=== PATIENT | female | born 1980 ===

== ENCOUNTER 2016-09-18 08:13 | Emergency (ER) | payer SELFPAY ==
--- NOTE | 2016-09-18 14:12 | ED CLINICAL REPORT ---
Clinical Report - Physicians/Mid Levels [facility] [address] [place] [address] 09/18/2016 8:15 Patient: CONY AVILES Time Seen: 09:00. Arrived- By private vehicle. Historian- patient. HISTORY OF PRESENT ILLNESS Chief Complaint: ABDOMINAL PAIN and VOMITING headache. At its maximum, severity described as moderate. When seen in the E.D., severity described as moderate. Modifying factors. Not worsened by anything. Not relieved by anything. It is described as "pain" and it is described as located in the epigastric area. This started about 2 days ago and is still present. The patient has had nausea, loss of appetite and vomiting. No diarrhea. (PT has also had a L-sided headache that started today. No recent head trauma or alcohol ingestion.). Similar symptoms previously: None. Recent medical care: The patient was seen recently at another facility. ( Pt was started on amoxicillin and Vicodin for a dental infection 3 days ago.). REVIEW OF SYSTEMS No constipation, black stools, hematemesis, difficulty with urination or pain with urination. No urinary frequency, bloody stools, fever, sore throat or blurred vision. No chest pain, difficulty breathing, cough, joint pain or skin rash. No chills or back pain. Denies current . The patient has had a headache. All systems otherwise negative, except as recorded above. PAST HISTORY Problems: no known problems. Additional Surgeries: . Medications: Hydrocodone-Acetaminophen Oral. Amoxicillin Oral. Allergies: No Known Drug Allergy. SOCIAL HISTORY Smoker- current status unknown. Occasional alcohol use. No drug use. ADDITIONAL NOTES The nursing notes have been reviewed. PHYSICAL EXAM Vital Signs: 09/18/2016 08:46 BP: 104/48. HR: 74. RR: 16. O2 saturation: 100%. Temp: 98.4 F. Have been reviewed. Appearance: Alert. No acute distress. (PT appears moderately uncomfortable.). Eyes: Pupils equal, round and reactive to light. Eyes normal inspection. ENT: Nose normal. Neck: Normal inspection. Neck supple. CVS: Normal heart rate and rhythm. Heart sounds normal. Pulses normal. Respiratory: No respiratory distress. Breath sounds normal. Abdomen: Soft. Moderate tenderness in the epigastric area. No guarding or rebound tenderness. Back: Normal inspection. No CVA tenderness. Skin: Skin warm and dry. Normal skin color. No rash. Normal skin turgor. Extremities: Extremities exhibit normal ROM. No lower extremity edema. Neuro: No motor deficit. No sensory deficit. (Pt answers questions briskly. She is primarily [place]se-speaking, and her interprets.). LABS, X-RAYS, AND EKG CT Head: No bony abnormalities, no midline shift, no hydrocephalus and no atrophy. (Pt has a 13-mm mass vs hemorrhage in her L frontal lobe.). Head CT performed without contrast. The study was independently viewed by me, interpreted by the radiologist and contemporaneously by me and discussed with the radiologist. Prior studies were not available for comparison. Abdominal Sonogram: The gallbladder is normal. Common duct is normal. Normal liver. No free fluid. (Pancreas shows signs of inflammation.). Study included the gallbladder and upper abdomen. Prior studies were not available for comparison. The study was interpreted by the radiologist and discussed with the radiologist. Laboratory Tests: UA-Culture if indicated: (YASMIN: 09/18/2016 08:55) ( MsgRcvd 09/18/2016 10:51) Final results Test Result Flag Units (Reference) URINE COLOR YELLOW URINE APPEARANCE CLEAR URINE GLUCOSE NEGATIVE (NEGATIVE) URINE BILIRUBIN NEGATIVE (NEGATIVE) URINE KETONE NEGATIVE (NEGATIVE) URINE SPECIFIC GRAVITY 1.025 (1.010-1.030) URINE PH 6.5 (5.0-8.0) URINE PROTEIN 1+ (NEGATIVE) URINE UROBILINOGEN 0.2 EU/dL (0.2-1.0) URINE NITRITE NEGATIVE (NEGATIVE) URINE BLOOD 3+ (NEGATIVE) URINE LEUK ESTERASE NEGATIVE (NEGATIVE) URINE RBC 50-75 rbc/hpf (0-1) URINE WBC 0-1 wbc/hpf (0-1) URINE EPITHELIAL CELLS 1-3 EPI/hpf (0-5) URINE BACTERIA NONE SEEN (NONE SEEN) URINE COMMENT CULT NOT INDICATED URINE CULTURES ARE SET-UP BASED ON THE FOLLOWING CRITERIA:POSITIVE NITRITEPOSITIVE LEUKOCYTE ESTERASEGREATER THAN 10 WHITE BLOOD CELLSMODERATE (2+) OR GREATER BACTERIA Urine: (YASMIN: 09/18/2016 08:55) ( [facility] Final results Test Result Flag Units (Reference) URINE NEGATIVE CBC w Diff: (YASMIN: 09/18/2016 09:00) ( [facility] 09/18/2016 10:16) Final results Test Result Flag Units (Reference) WHITE BLOOD COUNT 10.3 K/uL (4.5-11.5) RED BLOOD COUNT 3.75 L M/uL (4.00-5.20) HEMOGLOBIN 12.1 gm/dL (12.0-16.0) HEMATOCRIT 36.0 % (36.0-46.0) MEAN CELL VOLUME 96 fL (80-100) MEAN CORPUSCULAR HGB 32 pg (26-34) MEAN CORPUSCULAR HGB CONC 34 g/dL (31-37) RED CELL DISTRIBUTION WIDTH 13.0 % (11.6-14.8) PLATELET COUNT 222 K/uL (150-400) NEUTROPHIL % 87.1 H % (50-75) LYMPH % 8.9 L % (25-40) MONO % 3.7 % (3-14) EOSINOPHIL % 0.2 % (0-4) BASOPHIL % 0.1 % (0-2) CMP: (YASMIN: 09/18/2016 09:00) ( [facility] 09/18/2016 10:22) Final results Test Result Flag Units (Reference) GLUCOSE 105 mg/dL (70-110) BUN 12 mg/dL (7-18) CREATININE 0.5 L mg/dL (0.6-1.3) Estimated GFR >60 mL/min Estimated GFR- >60 mL/min Note: Persistent reduction over 3 months in eGFR<60 mL/min/1.73 m2 defines CKD. Patients with eGFR values>=60 mL/min/1.73 m2 may also have CKD if evidence ofpersistent proteinuria. Additional information may be foundat www.kidney.org. SODIUM 143 mmol/L (136-145) POTASSIUM 3.7 mmol/L (3.5-5.1) CHLORIDE 107 mmol/L (98-107) CARBON DIOXIDE 25 mmol/L (21-32) CALCIUM 8.1 L mg/dL (8.5-10.1) TOTAL PROTEIN 7.1 g/dL (6.4-8.2) ALBUMIN 3.6 g/dL (3.3-5.0) BILIRUBIN, TOTAL 0.2 mg/dL (0.0-1.0) ALKALINE PHOSPHATASE 37 L U/L (46-116) AST (SGOT) 110 H U/L (15-37) ALT (SGPT) 104 H U/L (12-78) LIPASE 878 H U/L (73-393) . Pulse Oximetry: 09/18/2016 08:46 O2 saturation: 100%. (FIO2 - room air). Interpretation: normal. PROGRESS AND PROCEDURES Course of Care: Pt was given IV fluids, Zofran and Dilaudid for her pain. Hospitalist was contacted to admit the pt for pancreatitis, but at the time of her evaluation, pt was noted to have staring episodes lasting 20-30 seconds, associated with clenching of her jaw. Episodes were noted to occur spontaneously in the middle of conversation, with no post-ictal sx afterward, and no tonic-clonic activity. I did observe an episode myself, and upon questioning the , he stated that pt had been experiencing this all day, though not on preceding days. Head CT was ordered, and demonstrated a L frontal lobe lesion which could represent a mass or bleed per radiologist. At this point, I felt pt should be transferred to a higher level of care for further work-up and intervention. Discussed case with on-call health care provider, (Kamron Sher/stroke fellow/[facility]: accepts pt in transfer to [facility]. Recommends oral loading with Dilantin.). Reviewed test results and need for additional work-up. Agreed upon treatment plan. Health care provider will see patient in ED. Patient and family counseled several times regarding the patient's serious condition, test results, diagnosis and need for additional testing and transfer. Concerns were addressed. Old medical records reviewed. Disposition: Transferred to [facility]. Condition: stable and serious. CLINICAL IMPRESSION New onset complex partial seizure (associated with brain lesion). Acute idiopathic pancreatitis. (Brain lesion: mass vs hemorrhage). (Electronically signed by Maria De Jesus Gonzalez MD 09/19/2016 14:06)
--- NOTE | 2016-09-18 14:12 | ED ORDER SUMMARY ---
..... Patient: CONY AVILES OrderSheet [facility] VisitID: [id number] [address] [place] [address] 36y, F Registration Date/Time: 09/18/2016 ORDER SHEET Weight: 55 kg (stated) Allergies: No Known Drug Allergy GENERAL ORDERS: UA-Culture if indicated Urgent (08:57 09/18/2016 MWinterer R.N. per protocol) (Ack 9:00 RKaruga) (9:10 MWinterer R.N.) Urine Urgent (08:57 09/18/2016 MWinterer R.N. per protocol) (Ack 9:00 RKaruga) (9:10 MWinterer R.N.) CBC w Diff Urgent (10:05 09/18/2016 Jie ALVARADO) (Ack 10:12 RKjatinuga) (10:17 MWinterer R.N.) CMP Urgent (10:05 09/18/2016 Jie ALVARADO) (Ack 10:12 RKjatinuga) (10:17 MWinterer R.N.) Lipase Urgent (10:05 09/18/2016 Jie ALVARADO) (Ack 10:12 RKjatinuga) (10:17 MWinterer R.N.) US Abdomen Limited (Yes) Urgent (11:58 09/18/2016 Jie ALVARADO) (Ack 12:23 MWinterer R.N.) (14:12 MWinterer R.N.) - (Please recheck temperature.) (13:31 09/18/2016 Jie ALVARADO) (13:35 MWinterer R.N.) - (triglyceride level) (14:19 09/18/2016 Jie ALVARADO) (Ack 14:23 Antwanuga) (15:30 MWinterer R.N.) CT Head wo Cont Urgent (14:40 09/18/2016 Jie ALVARADO) (Ack 14:44 RKleo) (15:30 MWinterer R.N.) MEDICATION ORDERS: Dilantin PO 500 mg (HIGH ALERT MEDICATION, NOW) (16:24 09/18/2016 Jie ALVARADO) (Ack 16:31 MWinterer R.N.) (16:47 MWinterer R.N.) IV FLUIDS: IV NS : initial bolus none -, then 1000 mL/hr (NOW) (09:27 09/18/2016 MWinterer R.N. per protocol) (9:27 MWinterer R.N.) Toradol IV 30 mg (NOW) (10:04 09/18/2016 Jie ALVARADO) (Ack 10:10 MWinterer R.N.) (10:19 MWinterer R.N.) Dilaudid IV 0.5 mg (HIGH ALERT MEDICATION, NOW) (10:04 09/18/2016 Jie ALVARADO) (Ack 10:10 MWinterer R.N.) (10:23 MWinterer R.N.) Zofran IV 8 mg (NOW) (10:04 09/18/2016 Jie ALVARADO) (Ack 10:10 MWinterer R.N.) (10:18 MWinterer R.N.) IV NS : initial bolus 1000 mL (1000 mL/hr), then none - (NOW) (16:24 09/18/2016 Jie ALVARADO) (Ack 16:32 MWinterer R.N.) (16:40 MWinterer R.N.) Dilaudid IV 1 mg (HIGH ALERT MEDICATION, NOW) (16:43 09/18/2016 Jie ALVARADO) (16:48 MWinterer R.N.) Zofran IV 4 mg (NOW) (17:51 09/18/2016 MWinterer R.N. verbal order read back to Jie ALVARADO) (17:52 MWinterer R.N.) ORDER SHEET NOTES: [Electronically signed by Justina Jacome R.N. (17:55 09/18/2016)] [Electronically signed by Maria De Jesus Gonzalez MD (14:06 09/19/2016)] [Electronically locked/signed by Justina Jacome R.N. (17:55 09/18/2016)]
--- NOTE | 2016-09-18 14:12 | ED ORDER SUMMARY ---
..... Patient: CONY AVILES OrderSheet [facility] VisitID: [id number] [address] [place] [address] 36y, F Registration Date/Time: 09/18/2016 ORDER SHEET Weight: 55 kg (stated) Allergies: No Known Drug Allergy GENERAL ORDERS: UA-Culture if indicated Urgent (08:57 09/18/2016 MWinterer R.N. per protocol) (Ack 9:00 RKaruga) (9:10 MWinterer R.N.) Urine Urgent (08:57 09/18/2016 MWinterer R.N. per protocol) (Ack 9:00 RKaruga) (9:10 MWinterer R.N.) CBC w Diff Urgent (10:05 09/18/2016 Jie ALVARADO) (Ack 10:12 RKjatinuga) (10:17 MWinterer R.N.) CMP Urgent (10:05 09/18/2016 Jie ALVARADO) (Ack 10:12 RKjatinuga) (10:17 MWinterer R.N.) Lipase Urgent (10:05 09/18/2016 Jie ALVARADO) (Ack 10:12 RKjatinuga) (10:17 MWinterer R.N.) US Abdomen Limited (Yes) Urgent (11:58 09/18/2016 Jie ALVARADO) (Ack 12:23 MWinterer R.N.) (14:12 MWinterer R.N.) - (Please recheck temperature.) (13:31 09/18/2016 Jie ALVARADO) (13:35 MWinterer R.N.) - (triglyceride level) (14:19 09/18/2016 Jie ALVARADO) (Ack 14:23 Antwanuga) (15:30 MWinterer R.N.) CT Head wo Cont Urgent (14:40 09/18/2016 Jie ALVARADO) (Ack 14:44 RKleo) (15:30 MWinterer R.N.) MEDICATION ORDERS: Dilantin PO 500 mg (HIGH ALERT MEDICATION, NOW) (16:24 09/18/2016 Jie ALVARADO) (Ack 16:31 MWinterer R.N.) (16:47 MWinterer R.N.) IV FLUIDS: IV NS : initial bolus none -, then 1000 mL/hr (NOW) (09:27 09/18/2016 MWinterer R.N. per protocol) (9:27 MWinterer R.N.) Toradol IV 30 mg (NOW) (10:04 09/18/2016 Jie ALVARADO) (Ack 10:10 MWinterer R.N.) (10:19 MWinterer R.N.) Dilaudid IV 0.5 mg (HIGH ALERT MEDICATION, NOW) (10:04 09/18/2016 Jie ALVARADO) (Ack 10:10 MWinterer R.N.) (10:23 MWinterer R.N.) Zofran IV 8 mg (NOW) (10:04 09/18/2016 Jie ALVARADO) (Ack 10:10 MWinterer R.N.) (10:18 MWinterer R.N.) IV NS : initial bolus 1000 mL (1000 mL/hr), then none - (NOW) (16:24 09/18/2016 Jie ALVARADO) (Ack 16:32 MWinterer R.N.) (16:40 MWinterer R.N.) Dilaudid IV 1 mg (HIGH ALERT MEDICATION, NOW) (16:43 09/18/2016 Jie ALVARADO) (16:48 MWinterer R.N.) Zofran IV 4 mg (NOW) (17:51 09/18/2016 MWinterer R.N. verbal order read back to Jie ALVARADO) (17:52 MWinterer R.N.) ORDER SHEET NOTES: [Electronically signed by Justina Jacome R.N. (17:55 09/18/2016)] [Electronically signed by Maria De Jesus Gonzalez MD (14:06 09/19/2016)] [Electronically locked/signed by Justina Jacome R.N. (17:55 09/18/2016)]
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
--- NOTE | 2016-09-18 14:12 | ED CLINICAL REPORT ---
Clinical Report - Physicians/Mid Levels [facility] [address] [place] [address] 09/18/2016 8:15 Patient: CONY AVILES Time Seen: 09:00. Arrived- By private vehicle. Historian- patient. HISTORY OF PRESENT ILLNESS Chief Complaint: ABDOMINAL PAIN and VOMITING headache. At its maximum, severity described as moderate. When seen in the E.D., severity described as moderate. Modifying factors. Not worsened by anything. Not relieved by anything. It is described as "pain" and it is described as located in the epigastric area. This started about 2 days ago and is still present. The patient has had nausea, loss of appetite and vomiting. No diarrhea. (PT has also had a L-sided headache that started today. No recent head trauma or alcohol ingestion.). Similar symptoms previously: None. Recent medical care: The patient was seen recently at another facility. ( Pt was started on amoxicillin and Vicodin for a dental infection 3 days ago.). REVIEW OF SYSTEMS No constipation, black stools, hematemesis, difficulty with urination or pain with urination. No urinary frequency, bloody stools, fever, sore throat or blurred vision. No chest pain, difficulty breathing, cough, joint pain or skin rash. No chills or back pain. Denies current . The patient has had a headache. All systems otherwise negative, except as recorded above. PAST HISTORY Problems: no known problems. Additional Surgeries: . Medications: Hydrocodone-Acetaminophen Oral. Amoxicillin Oral. Allergies: No Known Drug Allergy. SOCIAL HISTORY Smoker- current status unknown. Occasional alcohol use. No drug use. ADDITIONAL NOTES The nursing notes have been reviewed. PHYSICAL EXAM Vital Signs: 09/18/2016 08:46 BP: 104/48. HR: 74. RR: 16. O2 saturation: 100%. Temp: 98.4 F. Have been reviewed. Appearance: Alert. No acute distress. (PT appears moderately uncomfortable.). Eyes: Pupils equal, round and reactive to light. Eyes normal inspection. ENT: Nose normal. Neck: Normal inspection. Neck supple. CVS: Normal heart rate and rhythm. Heart sounds normal. Pulses normal. Respiratory: No respiratory distress. Breath sounds normal. Abdomen: Soft. Moderate tenderness in the epigastric area. No guarding or rebound tenderness. Back: Normal inspection. No CVA tenderness. Skin: Skin warm and dry. Normal skin color. No rash. Normal skin turgor. Extremities: Extremities exhibit normal ROM. No lower extremity edema. Neuro: No motor deficit. No sensory deficit. (Pt answers questions briskly. She is primarily Austrian-speaking, and her interprets.). LABS, X-RAYS, AND EKG CT Head: No bony abnormalities, no midline shift, no hydrocephalus and no atrophy. (Pt has a 13-mm mass vs hemorrhage in her L frontal lobe.). Head CT performed without contrast. The study was independently viewed by me, interpreted by the radiologist and contemporaneously by me and discussed with the radiologist. Prior studies were not available for comparison. Abdominal Sonogram: The gallbladder is normal. Common duct is normal. Normal liver. No free fluid. (Pancreas shows signs of inflammation.). Study included the gallbladder and upper abdomen. Prior studies were not available for comparison. The study was interpreted by the radiologist and discussed with the radiologist. Laboratory Tests: UA-Culture if indicated: (YASMIN: 09/18/2016 08:55) ( MsgRcvd 09/18/2016 10:51) Final results Test Result Flag Units (Reference) URINE COLOR YELLOW URINE APPEARANCE CLEAR URINE GLUCOSE NEGATIVE (NEGATIVE) URINE BILIRUBIN NEGATIVE (NEGATIVE) URINE KETONE NEGATIVE (NEGATIVE) URINE SPECIFIC GRAVITY 1.025 (1.010-1.030) URINE PH 6.5 (5.0-8.0) URINE PROTEIN 1+ (NEGATIVE) URINE UROBILINOGEN 0.2 EU/dL (0.2-1.0) URINE NITRITE NEGATIVE (NEGATIVE) URINE BLOOD 3+ (NEGATIVE) URINE LEUK ESTERASE NEGATIVE (NEGATIVE) URINE RBC 50-75 rbc/hpf (0-1) URINE WBC 0-1 wbc/hpf (0-1) URINE EPITHELIAL CELLS 1-3 EPI/hpf (0-5) URINE BACTERIA NONE SEEN (NONE SEEN) URINE COMMENT CULT NOT INDICATED URINE CULTURES ARE SET-UP BASED ON THE FOLLOWING CRITERIA:POSITIVE NITRITEPOSITIVE LEUKOCYTE ESTERASEGREATER THAN 10 WHITE BLOOD CELLSMODERATE (2+) OR GREATER BACTERIA Urine: (YASMIN: 09/18/2016 08:55) ( [facility] Final results Test Result Flag Units (Reference) URINE NEGATIVE CBC w Diff: (YASMIN: 09/18/2016 09:00) ( [facility]/18[facility]2016 10:16) Final results Test Result Flag Units (Reference) WHITE BLOOD COUNT 10.3 K/uL (4.5-11.5) RED BLOOD COUNT 3.75 L M/uL (4.00-5.20) HEMOGLOBIN 12.1 gm/dL (12.0-16.0) HEMATOCRIT 36.0 % (36.0-46.0) MEAN CELL VOLUME 96 fL (80-100) MEAN CORPUSCULAR HGB 32 pg (26-34) MEAN CORPUSCULAR HGB CONC 34 g/dL (31-37) RED CELL DISTRIBUTION WIDTH 13.0 % (11.6-14.8) PLATELET COUNT 222 K/uL (150-400) NEUTROPHIL % 87.1 H % (50-75) LYMPH % 8.9 L % (25-40) MONO % 3.7 % (3-14) EOSINOPHIL % 0.2 % (0-4) BASOPHIL % 0.1 % (0-2) CMP: (YASMIN: 09/18/2016 09:00) ( [facility]/18/2016 10:22) Final results Test Result Flag Units (Reference) GLUCOSE 105 mg/dL (70-110) BUN 12 mg/dL (7-18) CREATININE 0.5 L mg/dL (0.6-1.3) Estimated GFR >60 mL/min Estimated GFR- >60 mL/min Note: Persistent reduction over 3 months in eGFR<60 mL/min/1.73 m2 defines CKD. Patients with eGFR values>=60 mL/min/1.73 m2 may also have CKD if evidence ofpersistent proteinuria. Additional information may be foundat www.kidney.org. SODIUM 143 mmol/L (136-145) POTASSIUM 3.7 mmol/L (3.5-5.1) CHLORIDE 107 mmol/L (98-107) CARBON DIOXIDE 25 mmol/L (21-32) CALCIUM 8.1 L mg/dL (8.5-10.1) TOTAL PROTEIN 7.1 g/dL (6.4-8.2) ALBUMIN 3.6 g/dL (3.3-5.0) BILIRUBIN, TOTAL 0.2 mg/dL (0.0-1.0) ALKALINE PHOSPHATASE 37 L U/L (46-116) AST (SGOT) 110 H U/L (15-37) ALT (SGPT) 104 H U/L (12-78) LIPASE 878 H U/L (73-393) . Pulse Oximetry: 09/18/2016 08:46 O2 saturation: 100%. (FIO2 - room air). Interpretation: normal. PROGRESS AND PROCEDURES Course of Care: Pt was given IV fluids, Zofran and Dilaudid for her pain. Hospitalist was contacted to admit the pt for pancreatitis, but at the time of her evaluation, pt was noted to have staring episodes lasting 20-30 seconds, associated with clenching of her jaw. Episodes were noted to occur spontaneously in the middle of conversation, with no post-ictal sx afterward, and no tonic-clonic activity. I did observe an episode myself, and upon questioning the , he stated that pt had been experiencing this all day, though not on preceding days. Head CT was ordered, and demonstrated a L frontal lobe lesion which could represent a mass or bleed per radiologist. At this point, I felt pt should be transferred to a higher level of care for further work-up and intervention. Discussed case with on-call health care provider, (Kamron Sher/stroke fellow/[facility]: accepts pt in transfer to [facility]. Recommends oral loading with Dilantin.). Reviewed test results and need for additional work-up. Agreed upon treatment plan. Health care provider will see patient in ED. Patient and family counseled several times regarding the patient's serious condition, test results, diagnosis and need for additional testing and transfer. Concerns were addressed. Old medical records reviewed. Disposition: Transferred to [facility]. Condition: stable and serious. CLINICAL IMPRESSION New onset complex partial seizure (associated with brain lesion). Acute idiopathic pancreatitis. (Brain lesion: mass vs hemorrhage). (Electronically signed by Maria De Jesus Gonzalez MD 09/19/2016 14:06)
--- NOTE | 2016-09-18 15:44 | DIAGNOSTIC IMAGING REPORT ---
PROCEDURE: US ABDOMEN ULTRASOUND-LIMITED INDICATION: RUQ PAIN TECHNIQUE: Antonio scale and color Doppler sonographic images were obtained of the right upper quadrant. COMPARISON: None. FINDINGS: The liver is normal in size, contour, and echotexture. No mass or biliary dilatation. The gallbladder is normal without stones or sludge. Normal wall thickness at 1.8 mm. No pericholecystic fluid or Wolf's sign. The visible portion of the inferior vena cava, abdominal aorta, and portal vein appear normal with appropriate direction of flow in the portal vein. The right kidney is normal measuring 10.5 cm. No free fluid in the right upper quadrant. Sonographic appearance the pancreas is grossly normal. No significant peripancreatic fluid. IMPRESSION: 1. Normal right upper quadrant ultrasound.
--- NOTE | 2016-09-18 16:08 | DIAGNOSTIC IMAGING REPORT ---
PROCEDURE: CT HEAD WITHOUT CONTRAST INDICATION: MENTAL STATUS CHANGE TECHNIQUE: Axial CT images were acquired through the head. Coronal and sagittal reformations were created. COMPARISON: None. FINDINGS: There is an ovoid, wispy, slightly heterogeneous hyperdensity in the left frontal subcortical white matter, just cranial, adjacent to the sylvian fissure. It measures 1.3 x 0.7 x 0.9 cm. No perceptible adjacent edema or significant effacement of sulci, or loss of martinez-white matter differentiation. Normal ventricles without dependent hyperdensity. No suspicious extraaxial fluid collections. The basil cisterns are patent without evidence of hemorrhage. No midline shift or herniation. Orbits and extracranial soft tissues are normal. Minor mucosal thickening in the maxillary sinuses. The other sinuses are normally aerated. Calvarium is intact. IMPRESSION: 1. 13 mm wispy ovoid hyperdensity in the left frontal region. Differential diagnosis includes a low grade neoplasm, leaking aneurysm, given proximity to MCA branch territory, evidence of chronic hemorrhage, benign calcification, or post infectious/inflammatory change. Contrast enhanced MRI, and MRA or CTA recommended. 2. No significant adjacent mass effect or evidence of herniation. 3. Findings discussed with Dr. Gonzalez in the emergency room at [address] scans at this facility use dose modulation, iterative reconstruction, and/or weight-based dosing when appropriate to reduce radiation dose to as low as reasonably achievable.
--- NOTE | 2016-09-19 14:06 | ED DISCHARGE INSTRUCTIONS ---
Patient: CONY AVILES General Instructions [facility] VisitID: [id number] [address] [place] [address] 36y, F Registration Date/Time: 09/18/2016 New onset complex partial seizure (associated with brain lesion). Acute idiopathic pancreatitis. (Brain lesion: mass vs hemorrhage). (Electronically signed by Maria De Jesus Gonzalez MD 09/19/2016 14:06)
--- NOTE | 2016-09-19 14:06 | ED MAR SUMMARY ---
..... Medication Administration Record [facility] [address] [place] [address] Patient: CONY AVILES Visit ID: [id number] 36y, F Weight: 55.0 kg Height/Length: 64 in BMI: 20.8 ALLERGIES: No Known Drug Allergy Start 09:27 09/18/2016 Justina Jacome R.N., Stop 10:30 09/18/2016 Justina Jacome R.N. Medication Administered: IV NS (SALINE), Dose: IV Fluids over 1 hour(s), Rate: 999 mL/hr, Dispensed: 1000 mL bag, Site: #1 right AC. Medication Ordered: IV NS : initial bolus none -, then 1000 mL/hr (NOW). Given 10:18 09/18/2016 Justina Jacome R.N. Medication Administered: ZOFRAN [IVP] (ONDANSETRON HCL), Dose: 8 mg IVP over 2 minute(s), Site: #1 right AC. Medication Ordered: Zofran IV 8 mg (NOW). Given 10:19 09/18/2016 Justina Jacome R.N. Medication Administered: TORADOL [IVP], Dose: 30 mg IVP over 1 minute(s), Site: #1 right AC. Medication Ordered: Toradol IV 30 mg (NOW). Given 10:23 09/18/2016 Justina Jacome R.N. Medication Administered: DILAUDID [IVP] (HYDROMORPHONE HCL PF), Dose: 0.5 mg IVP over 1 minute(s), Site: #1 right AC. Medication Ordered: Dilaudid IV 0.5 mg (HIGH ALERT MEDICATION, NOW). Start 16:40 09/18/2016 Justina Jacome R.N., Stop 17:00 09/18/2016 Justina Jacome R.N. Medication Administered: IV NS (SALINE), Dose: IV Fluids over 1 hour(s), Rate: 100 mL/hr, Dispensed: 1000 mL bag, Site: #1 right AC. Medication Ordered: IV NS : initial bolus 1000 mL (1000 mL/hr), then none - (NOW). Given 16:47 09/18/2016 Justina Jacome R.N. Medication Administered: DILANTIN [PO] (PHENYTOIN SODIUM), Dose: 500 mg PO. Medication Ordered: Dilantin PO 500 mg (HIGH ALERT MEDICATION, NOW). Given 16:48 09/18/2016 Justina Jacome R.N. Medication Administered: DILAUDID [IVP] (HYDROMORPHONE HCL PF), Dose: 1 mg IVP over 2 minute(s), Site: #1 right AC. Medication Ordered: Dilaudid IV 1 mg (HIGH ALERT MEDICATION, NOW). Given 17:00 09/18/2016 Justina Jacome R.N. Medication Administered: ZOFRAN [IVP] (ONDANSETRON HCL), Dose: 4 mg IVP over 1 minute(s), Site: #1. Medication Ordered: Zofran IV 4 mg (NOW).
--- NOTE | 2016-09-19 14:06 | ED MED RECONCILIATION SUMMARY ---
Patient: CONY AVILES Medication Reconciliation Report [facility] VisitID: [id number] [address] [place] [address] 36y, F Registration Date/Time: 09/18/2016 Weight: 55 kg Height/Length: 64 in. BMI: 20.8 ALLERGIES: No Known Drug Allergy The patient's Home Medications are listed below: THE FOLLOWING MEDICATIONS NEED TO BE RECONCILED: Amoxicillin Oral Hydrocodone-Acetaminophen Oral The source(s) of the original Home Medication information: patient The following Medications were given to the patient in the Emergency Department: IV NS IV Fluids bolus 0, then 999 mL/hr, administered: 09/18/2016 9:27:00 AM Zofran [IVP] IVP 8 mg, administered: 09/18/2016 10:18:00 AM Toradol [IVP] IVP 30 mg, administered: 09/18/2016 10:19:00 AM Dilaudid [IVP] IVP 0.5 mg, administered: 09/18/2016 10:23:00 AM IV NS IV Fluids bolus 0, then 100 mL/hr, administered: 09/18/2016 4:40:00 PM Dilantin [PO] PO 500 mg, administered: 09/18/2016 4:47:00 PM Dilaudid [IVP] IVP 1 mg, administered: 09/18/2016 4:48:00 PM Zofran [IVP] IVP 4 mg, administered: 09/18/2016 5:00:00 PM The following Medications were prescribed to the patient: None.
--- NOTE | 2016-09-19 14:06 | ED MAR SUMMARY ---
..... Medication Administration Record [facility] [address] [place] [address] Patient: CONY AVILES Visit ID: [id number] 36y, F Weight: 55.0 kg Height/Length: 64 in BMI: 20.8 ALLERGIES: No Known Drug Allergy Start 09:27 09/18/2016 Justina Jacome R.N., Stop 10:30 09/18/2016 Justina Jacome R.N. Medication Administered: IV NS (SALINE), Dose: IV Fluids over 1 hour(s), Rate: 999 mL/hr, Dispensed: 1000 mL bag, Site: #1 right AC. Medication Ordered: IV NS : initial bolus none -, then 1000 mL/hr (NOW). Given 10:18 09/18/2016 Justina Jacome R.N. Medication Administered: ZOFRAN [IVP] (ONDANSETRON HCL), Dose: 8 mg IVP over 2 minute(s), Site: #1 right AC. Medication Ordered: Zofran IV 8 mg (NOW). Given 10:19 09/18/2016 Justina Jacome R.N. Medication Administered: TORADOL [IVP], Dose: 30 mg IVP over 1 minute(s), Site: #1 right AC. Medication Ordered: Toradol IV 30 mg (NOW). Given 10:23 09/18/2016 Justina Jacome R.N. Medication Administered: DILAUDID [IVP] (HYDROMORPHONE HCL PF), Dose: 0.5 mg IVP over 1 minute(s), Site: #1 right AC. Medication Ordered: Dilaudid IV 0.5 mg (HIGH ALERT MEDICATION, NOW). Start 16:40 09/18/2016 Justina Jacome R.N., Stop 17:00 09/18/2016 Justina Jacome R.N. Medication Administered: IV NS (SALINE), Dose: IV Fluids over 1 hour(s), Rate: 100 mL/hr, Dispensed: 1000 mL bag, Site: #1 right AC. Medication Ordered: IV NS : initial bolus 1000 mL (1000 mL/hr), then none - (NOW). Given 16:47 09/18/2016 Justina Jacome R.N. Medication Administered: DILANTIN [PO] (PHENYTOIN SODIUM), Dose: 500 mg PO. Medication Ordered: Dilantin PO 500 mg (HIGH ALERT MEDICATION, NOW). Given 16:48 09/18/2016 Justina Jacome R.N. Medication Administered: DILAUDID [IVP] (HYDROMORPHONE HCL PF), Dose: 1 mg IVP over 2 minute(s), Site: #1 right AC. Medication Ordered: Dilaudid IV 1 mg (HIGH ALERT MEDICATION, NOW). Given 17:00 09/18/2016 Justina Jacome R.N. Medication Administered: ZOFRAN [IVP] (ONDANSETRON HCL), Dose: 4 mg IVP over 1 minute(s), Site: #1. Medication Ordered: Zofran IV 4 mg (NOW).
--- NOTE | 2016-09-19 14:06 | ED MED RECONCILIATION SUMMARY ---
Patient: CONY AVILES Medication Reconciliation Report [facility] VisitID: [id number] [address] [place] [address] 36y, F Registration Date/Time: 09/18/2016 Weight: 55 kg Height/Length: 64 in. BMI: 20.8 ALLERGIES: No Known Drug Allergy The patient's Home Medications are listed below: THE FOLLOWING MEDICATIONS NEED TO BE RECONCILED: Amoxicillin Oral Hydrocodone-Acetaminophen Oral The source(s) of the original Home Medication information: patient The following Medications were given to the patient in the Emergency Department: IV NS IV Fluids bolus 0, then 999 mL/hr, administered: 09/18/2016 9:27:00 AM Zofran [IVP] IVP 8 mg, administered: 09/18/2016 10:18:00 AM Toradol [IVP] IVP 30 mg, administered: 09/18/2016 10:19:00 AM Dilaudid [IVP] IVP 0.5 mg, administered: 09/18/2016 10:23:00 AM IV NS IV Fluids bolus 0, then 100 mL/hr, administered: 09/18/2016 4:40:00 PM Dilantin [PO] PO 500 mg, administered: 09/18/2016 4:47:00 PM Dilaudid [IVP] IVP 1 mg, administered: 09/18/2016 4:48:00 PM Zofran [IVP] IVP 4 mg, administered: 09/18/2016 5:00:00 PM The following Medications were prescribed to the patient: None.
--- NOTE | 2016-09-19 14:06 | ED DISCHARGE INSTRUCTIONS ---
Patient: CONY AVILES General Instructions [facility] VisitID: [id number] [address] [place] [address] 36y, F Registration Date/Time: 09/18/2016 New onset complex partial seizure (associated with brain lesion). Acute idiopathic pancreatitis. (Brain lesion: mass vs hemorrhage). (Electronically signed by Maria De Jesus Gonzalez MD 09/19/2016 14:06)
== END 2016-09-18 17:10 | disposition short-term general hospital (02) ==
LOC: ED SRH 08:13 → TRANS SRH 14:49 → ED SRH 14:49
DX: G40.209 Localization-related (focal) (partial) symptomatic epilepsy and epileptic syndromes with complex partial seizures, not intractable, without status epilepticus (principal); G93.9 Disorder of brain, unspecified; K85.00 Idiopathic acute pancreatitis without necrosis or infection; Z79.2 Long term (current) use of antibiotics; Z88.5 Allergy status to narcotic agent; F17.210 Nicotine dependence, cigarettes, uncomplicated
CPT/HCPCS: 90004; 90100; 92235; 92855; 93070; 95059